=== PATIENT | male | born 1950 | race American Indian/Alaskan Native ===

== ENCOUNTER 2023-07-20 13:20 | Inpatient (IN) | payer MEDICARE, OTHER ==
[~2023-07-20] VITALS: Ht 172.7 cm; Wt 64.0 kg
[~2023-07-20 13:20] MED LIST: ALBU8HFA4 INH; ASPI-605 PO; BENA20TA9 PO; BUPR100T13 PO; METF-442 PO; MOME13HF2 IH; OMEP20CA15 PO
[2023-07-20 16:59] VITALS: BP 158/78; TEMP 98.8; O2SAT 98
[2023-07-20] MEDS ORDERED: LISI20TA30 PO (18:01)
[2023-07-20] MEDS ORDERED: ASPI-618 PO (18:03)
[2023-07-20] MEDS ORDERED: METF-495 PO (18:04)
[2023-07-20] MEDS ORDERED: ESCI-9 PO (18:09)
[2023-07-20] MEDS ORDERED: GLIP10TA21 PO (18:09)
[2023-07-20] MEDS ORDERED: DONE10TA44 PO (18:10)
[2023-07-20] MEDS ORDERED: ATOR10TA PO (18:11)
[2023-07-20] MEDS ORDERED: MEMA28CA PO (18:12)
[2023-07-20] MEDS ORDERED: LINA5TAB PO (18:15)
[2023-07-20] MEDS ORDERED: TAMS-3 PO (18:15)
[2023-07-20] MEDS ORDERED: LEVO50TA8 PO (18:22)
[2023-07-20] MEDS ORDERED: FINA5TAB3 PO (18:22)
[2023-07-20 20:00] VITALS: BP 154/68; TEMP 98.5; O2SAT 97
[2023-07-21 06:31] VITALS: BP 160/71; TEMP 98.1; O2SAT 98
[2023-07-21 07:34] LABS: BASOPHILS % (AUTO) 0.7 % (0.0-2.0); EOSINOPHILS # (AUTO) 0.2 K/uL (0.0-0.7); EOSINOPHILS % (AUTO) 4.9 % (0.0-7.0); HEMATOCRIT 33.1 % (36.7-47.1); HEMOGLOBIN 11.5 g/dL (12.5-16.3); LYMPHOCYTES # (AUTO) 1.6 K/uL (0.8-4.8); MEAN CORPUSCULAR HEMOGLOBIN 31.6 uug (23.8-33.4); MEAN CORPUSCULAR HGB CONC 35 g/dL (32.5-36.3); MEAN CORPUSCULAR VOLUME 90.7 fL (73.0-96.2); MONOCYTES # (AUTO) 0.4 K/uL (0.1-1.30); MONOCYTES % (AUTO) 7.8 % (0.0-11.0); NEUTROPHILS # (AUTO) 2.6 K/uL (1.8-8.9); NEUTROPHILS % (AUTO) 53.6 % (38.5-71.5); PLATELET COUNT (AUTO) 215 K/uL (152-348); RED BLOOD CELL COUNT(AUTO) 3.65 MIL/uL (4.06-5.63); RED CELL DISTRIBUTION WIDTH 13.6 % (12.1-16.2); WHITE BLOOD COUNT (AUTO) 4.9 K/uL (3.6-10.2)
[2023-07-21 07:51] LABS: DIFFERENTIAL COMMENT 1
[2023-07-21 07:58] LABS: CALCIUM 8.2 mg/dL (8.5-10.1); CARBON DIOXIDE 29 mmol/L (21-32); CHLORIDE 105 mmol/L (98-107); CREATININE 0.6 mg/dL (0.6-1.3); GLUCOSE 209 mg/dL (74-106); MAGNESIUM 1.7 mg/dL (1.8-2.4); PHOSPHOROUS 3.3 mg/dL (2.5-4.9); POTASSIUM 3.8 mmol/L (3.5-5.1); SODIUM SERUM 140 mmol/L (136-145); UREA NITROGEN, BLOOD 13 mg/dL (7-18)
[2023-07-21] MEDS: MAGNESIUM OXIDE 400 MG TABLET PO ONE (09:45)
[2023-07-21 11:52] VITALS: BP 138/66; TEMP 98.5; O2SAT 97
[2023-07-21] MEDS: LISINOPRIL 20 MG TABLET PO SCH (15:30)
[2023-07-21] MEDS: ASPIRIN EC 81 MG TABLET.DR PO SCH (15:30)
[2023-07-21 16:00] VITALS: BP 163/72; TEMP 97.9; O2SAT 98
[2023-07-21] MEDS: METFORMIN XR 500 MG TAB.SR.24H PO SCH (17:22)
[2023-07-21] MEDS: MEMANTINE HCL 10 MG TABLET PO SCH (17:22)
[2023-07-21 20:00] VITALS: BP 156/73; TEMP 98.7; O2SAT 97
[2023-07-21] MEDS: ATORVASTATIN 10 MG TABLET PO SCH (20:52)
[2023-07-21] MEDS: TAMSULOSIN HCL 0.4 MG CAP.SR.24H PO SCH (20:52)
[2023-07-21] MEDS: DONEPEZIL 10 MG TABLET PO SCH (20:52)
[2023-07-22 05:21] LABS: *BILIRUBIN,URIN NEGATIVE (NEGATIVE); *BLOOD, URINE NEGATIVE (NEGATIVE); *CLARITY,URINE CLEAR (CLEAR); *COLOR,URINE YELLOW (YELLOW); *KETONES,URINE NEGATIVE (NEGATIVE); *PROTEIN,URINE NEGATIVE (NEGATIVE); *UROBILINOGEN,URINE 0.2 E.U./dl (NORMAL); LEUKOCYTE ESTERASE ,URINE NEGATIVE (NEGATIVE); NITRITE, URINE NEGATIVE (NEGATIVE); PH,URINE 5.5 (5.0-8.0); UGLUCOSE TRACE (NEGATIVE)
[2023-07-22 06:00] VITALS: BP 158/77; TEMP 97.9; O2SAT 96
[2023-07-22] MEDS: LEVOTHYROXINE SODIUM 50 MCG TABLET PO SCH (06:11)
[2023-07-22] MEDS: FINASTERIDE 5 MG TABLET PO SCH (10:21)
[2023-07-22] MEDS: LINAGLIPTIN 5 MG TABLET PO SCH (10:22)
[2023-07-22] MEDS: ESCITALOPRAM OXALATE 10 MG TABLET PO SCH (10:22)
[2023-07-22 15:36] VITALS: BP 152/52; TEMP 98.1; O2SAT 97
[2023-07-22] MEDS: glipiZIDE XL 5 MG TABCR PO SCH (16:53)
[2023-07-22 20:00] VITALS: BP 142/68; TEMP 97.7; O2SAT 96
[2023-07-22 21:48] VITALS: BP 142/68; TEMP 97.7; O2SAT 96
[2023-07-22] MEDS: REMEDY ESSENTIAL ZINC PASTE 113 GM TOP PRN (22:50)
[2023-07-23 05:13] VITALS: BP 141/62; TEMP 98.1; O2SAT 96
[2023-07-23 08:00] VITALS: BP_SYST 142; BP_SYST 156; BP_DIAS 72; BP_DIAS 78; TEMP 98.2; TEMP 98.6; O2SAT 98
[2023-07-23 12:00] VITALS: BP 135/58; TEMP 97.8; O2SAT 97
[2023-07-23 16:00] VITALS: BP 137/60; TEMP 97.6; O2SAT 97
[2023-07-23 20:37] VITALS: BP 133/71; TEMP 98.4; O2SAT 95
[2023-07-24 04:26] VITALS: BP 144/71; TEMP 98.2; O2SAT 96
[2023-07-24 06:19] LABS: BASOPHILS % (AUTO) 0.6 % (0.0-2.0); EOSINOPHILS # (AUTO) 0.3 K/uL (0.0-0.7); EOSINOPHILS % (AUTO) 4.2 % (0.0-7.0); HEMATOCRIT 38.3 % (36.7-47.1); HEMOGLOBIN 13.1 g/dL (12.5-16.3); LYMPHOCYTES # (AUTO) 1.7 K/uL (0.8-4.8); LYMPHOCYTES % (AUTO) 28.5 % (20.5-51.5); MEAN CORPUSCULAR HEMOGLOBIN 30.8 uug (23.8-33.4); MEAN CORPUSCULAR HGB CONC 34 g/dL (32.5-36.3); MEAN CORPUSCULAR VOLUME 90.1 fL (73.0-96.2); MONOCYTES # (AUTO) 0.3 K/uL (0.1-1.30); MONOCYTES % (AUTO) 5.2 % (0.0-11.0); NEUTROPHILS # (AUTO) 3.8 K/uL (1.8-8.9); NEUTROPHILS % (AUTO) 61.5 % (38.5-71.5); PLATELET COUNT (AUTO) 213 K/uL (152-348); RED BLOOD CELL COUNT(AUTO) 4.25 MIL/uL (4.06-5.63); RED CELL DISTRIBUTION WIDTH 13.7 % (12.1-16.2); WHITE BLOOD COUNT (AUTO) 6.1 K/uL (3.6-10.2)
[2023-07-24 06:24] LABS: DIFFERENTIAL COMMENT 1
[2023-07-24 06:33] LABS: CALCIUM 8.6 mg/dL (8.5-10.1); CARBON DIOXIDE 31 mmol/L (21-32); CHLORIDE 103 mmol/L (98-107); CREATININE 0.8 mg/dL (0.6-1.3); GLUCOSE 182 mg/dL (74-106); MAGNESIUM 1.8 mg/dL (1.8-2.4); PHOSPHOROUS 3.6 mg/dL (2.5-4.9); POTASSIUM 4.5 mmol/L (3.5-5.1); SODIUM SERUM 139 mmol/L (136-145); UREA NITROGEN, BLOOD 19 mg/dL (7-18)
[2023-07-24 16:00] VITALS: BP 129/95; TEMP 98.4; O2SAT 98
[2023-07-24 20:30] VITALS: BP 165/72; TEMP 98.2; O2SAT 96
[2023-07-25 06:50] VITALS: TEMP 98.3
[2023-07-25 08:00] VITALS: BP 143/74; TEMP 97.6; O2SAT 97
[2023-07-25 15:09] VITALS: BP 139/67; TEMP 98.4; O2SAT 95
[2023-07-25 20:55] VITALS: BP 145/66; TEMP 98.2; O2SAT 96
[2023-07-25] MEDS ORDERED: METHOCARBAMOL 750 MG TABLET PO PRN (22:00)
[2023-07-25] MEDS ORDERED: HYDROMORPHONE HCL 2 MG TABLET PO PRN (22:00)
[2023-07-26 04:39] VITALS: BP 147/64; TEMP 97.9; O2SAT 96
[2023-07-26 08:00] VITALS: BP 146/78; TEMP 98.6; O2SAT 96
[2023-07-26] MEDS ORDERED: MORPHINE SULFATE SR 15 MG TABLET.SA PO SCH (09:00)
[2023-07-26 16:05] VITALS: BP 120/59; TEMP 98.1; O2SAT 94
[2023-07-26 20:00] VITALS: BP 138/68; TEMP 98.3; O2SAT 96
[2023-07-27 06:00] VITALS: BP 128/67; TEMP 98.2; O2SAT 97
[2023-07-27 07:22] LABS: BASOPHILS % (AUTO) 0.6 % (0.0-2.0); EOSINOPHILS # (AUTO) 0.2 K/uL (0.0-0.7); EOSINOPHILS % (AUTO) 3.8 % (0.0-7.0); HEMATOCRIT 35.8 % (36.7-47.1); HEMOGLOBIN 12.4 g/dL (12.5-16.3); LYMPHOCYTES # (AUTO) 1.8 K/uL (0.8-4.8); LYMPHOCYTES % (AUTO) 29.2 % (20.5-51.5); MEAN CORPUSCULAR HEMOGLOBIN 31.1 uug (23.8-33.4); MEAN CORPUSCULAR HGB CONC 35 g/dL (32.5-36.3); MEAN CORPUSCULAR VOLUME 89.9 fL (73.0-96.2); MONOCYTES # (AUTO) 0.4 K/uL (0.1-1.30); MONOCYTES % (AUTO) 6.3 % (0.0-11.0); NEUTROPHILS # (AUTO) 3.8 K/uL (1.8-8.9); NEUTROPHILS % (AUTO) 60.1 % (38.5-71.5); PLATELET COUNT (AUTO) 194 K/uL (152-348); RED BLOOD CELL COUNT(AUTO) 3.98 MIL/uL (4.06-5.63); RED CELL DISTRIBUTION WIDTH 13.4 % (12.1-16.2); WHITE BLOOD COUNT (AUTO) 6.3 K/uL (3.6-10.2)
[2023-07-27 07:29] LABS: DIFFERENTIAL COMMENT 1
[2023-07-27 07:40] LABS: CALCIUM 8.7 mg/dL (8.5-10.1); CARBON DIOXIDE 30 mmol/L (21-32); CHLORIDE 105 mmol/L (98-107); CREATININE 0.8 mg/dL (0.6-1.3); GLUCOSE 162 mg/dL (74-106); MAGNESIUM 1.7 mg/dL (1.8-2.4); PHOSPHOROUS 4.2 mg/dL (2.5-4.9); POTASSIUM 4.3 mmol/L (3.5-5.1); SODIUM SERUM 141 mmol/L (136-145); UREA NITROGEN, BLOOD 22 mg/dL (7-18)
[2023-07-27] MEDS: MAGNESIUM OXIDE 400 MG TABLET PO ONE (10:48)
[2023-07-27 16:24] VITALS: BP 117/66; TEMP 98.2; O2SAT 97
[2023-07-27 19:35] VITALS: BP 153/68; TEMP 98.3; O2SAT 97
[2023-07-28 05:37] VITALS: BP 147/71; TEMP 97.7; O2SAT 97
[2023-07-28 07:44] VITALS: BP 136/77; TEMP 97.6; O2SAT 96
[2023-07-28 15:19] VITALS: BP 140/62; TEMP 97.4; O2SAT 96
[2023-07-28 20:09] VITALS: BP 140/62; TEMP 98.4; O2SAT 95
[2023-07-29 04:27] VITALS: BP 108/71; TEMP 98.5; O2SAT 97
[2023-07-29 06:10] VITALS: TEMP 99
[2023-07-29 13:36] VITALS: BP 141/65; TEMP 98.1; O2SAT 97
== END 2023-07-29 15:10 | disposition home health service (06) | DRG 92 ==
PROVIDERS: ADMIT Physical Medicine & Rehabilitation Pain Medicine; ATTEND Physical Medicine & Rehabilitation Pain Medicine
DX: G92.8 Other toxic encephalopathy (principal); G72.81 Critical illness myopathy; N39.0 Urinary tract infection, site not specified; R53.1 Weakness; Z88.2 Allergy status to sulfonamides; Z88.3 Allergy status to other anti-infective agents; B96.1 Klebsiella pneumoniae [K. pneumoniae] as the cause of diseases classified elsewhere; E11.65 Type 2 diabetes mellitus with hyperglycemia; E78.5 Hyperlipidemia, unspecified; F02.80 Dementia in other diseases classified elsewhere, unspecified severity, without behavioral disturbance, psychotic disturbance, mood disturbance, and anxiety; G30.9 Alzheimer's disease, unspecified; I10 Essential (primary) hypertension; Z82.49 Family history of ischemic heart disease and other diseases of the circulatory system
CPT/HCPCS: 36415; 83735; 84100; 85025; 97535-GO-CO; A4663; J8499